=== PATIENT | male | born 1950 | race Caucasian/White ===

== ENCOUNTER → 2020-05-17 11:51 | Outpatient (BNVA) | payer MEDICARE, SELFPAY | PROVIDERS: Visit Provider Urology | DX: Z85.51 Personal history of malignant neoplasm of bladder (principal); Z80.42 Family history of malignant neoplasm of prostate | CPT/HCPCS: 52000; 81002; 99212 ==

== ENCOUNTER → 2021-06-06 10:53 | Outpatient (BNVA) | payer MEDICARE, SELFPAY | PROVIDERS: Visit Provider Urology | DX: N40.1 Benign prostatic hyperplasia with lower urinary tract symptoms (principal); N13.8 Other obstructive and reflux uropathy; R33.8 Other retention of urine | CPT/HCPCS: 52000; 99212 ==

== ENCOUNTER 2021-06-20 14:48 | Outpatient (REF) | payer MEDICARE, SELFPAY ==
[2021-06-20 16:39] LABS: Appearance Urine CLEAR; Color Urine YELLOW; Glucose Urine UA NEG (NEG); Leukocyte Esterase Urine 1+ (NEG); Nitrite Urine NEG (NEG); Specific Gravity - Urine >= 1.030 (1.005-1.025); Urine Blood NEG (NEG); Urine Ketones NEG (NEG); Urine Protein NEG (NEG-TRACE)
[2021-06-20 16:49] LABS: Bacteria Urine TRACE /LPF; RBC Urine 0 /HPF (0)
== END 2021-06-20 14:49 | disposition home or self-care (01) ==
LOC: HO.HMGCLDS 14:48
PROVIDERS: PCP Internal Medicine; Visit Provider Urology
DX: N13.8 Other obstructive and reflux uropathy (principal); N40.1 Benign prostatic hyperplasia with lower urinary tract symptoms
CPT/HCPCS: 81001; 87086

== ENCOUNTER 2022-01-08 13:05 | Outpatient (REF) | payer MEDICARE, SELFPAY ==
[2022-01-08 15:42] LABS: Urine Cytology See Pathology rpt
== END 2022-01-08 13:06 | disposition home or self-care (01) ==
LOC: HO.LAB 13:05
PROVIDERS: Visit Provider Urology
DX: N40.1 Benign prostatic hyperplasia with lower urinary tract symptoms (principal); N13.8 Other obstructive and reflux uropathy; Z79.899 Other long term (current) drug therapy; Z85.51 Personal history of malignant neoplasm of bladder
CPT/HCPCS: 51798; 52000; 88112; 99212

== ENCOUNTER 2022-06-16 16:22 | Emergency (ER) | payer OTHER, SELFPAY ==
--- NOTE | ~2022-06-16 | XR_ITS ---
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 Mild to moderate degenerative changes are noted throughout the thoracic spine with disc space narrowing. There is mild anterior wedging midthoracic and lower thoracic vertebral bodies. No acute fractures or bony destructive lesions are seen. Lumbar spine: Marked degenerative changes are present throughout the lumbar spine with most marked disc space narrowing from L3 through S1. There is mild scoliosis convex to the right. XR/XR lumbar spine 2-3V IMPRESSION: Degenerative changes in the thoracic and lumbar spine as described above.
--- NOTE | ~2022-06-16 | XR_ITS ---
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 Mild to moderate degenerative changes are noted throughout the thoracic spine with disc space narrowing. There is mild anterior wedging midthoracic and lower thoracic vertebral bodies. No acute fractures or bony destructive lesions are seen. Lumbar spine: Marked degenerative changes are present throughout the lumbar spine with most marked disc space narrowing from L3 through S1. There is mild scoliosis convex to the right. XR/XR thoracic spine 3V IMPRESSION: Degenerative changes in the thoracic and lumbar spine as described above.
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
[2022-06-16 19:44] VITALS: BP 134/72; PULSE 75; RESP 18; TEMP 36.8; O2SAT 99; BMI 26.2
== END 2022-06-16 19:54 | disposition home or self-care (01) ==
PROVIDERS: Emergency Provider Emergency Medicine Emergency Medical Services; PCP Internal Medicine
DX: M54.50 Low back pain, unspecified (principal); M54.6 Pain in thoracic spine
CPT/HCPCS: 72072; 72100; 99282; 99283